=== PATIENT | male | born 1980 | race Caucasian/White ===

== ENCOUNTER 2018-12-27 21:47 | Emergency (ER) | payer OTHER ==
[~2018-12-27] VITALS: Ht 175.3 cm; Wt 195.0 kg
[2018-12-27 21:50] VITALS: BP_SYST 122; BP_SYST 209; BP_DIAS 1; BP_DIAS 93
[2018-12-27] MEDS ORDERED: ONDANSETRON 4 MG/2 ML VIAL IVP ONE (22:40)
[2018-12-27] MEDS ORDERED: NACL 0.9% 1,000 ML IV ONE (22:40)
[2018-12-27] MEDS ORDERED: MORPHINE SULFATE 4 MG/ML SYR IVP ONE ×2 (22:40→23:45)
[2018-12-27 22:59] LABS: BASOPHILS # (AUTO) 0.1 K/uL (0.00-0.22); EOSINOPHILS # (AUTO) 0.3 K/uL (0-0.4); EOSINOPHILS % (AUTO) 2.4 % (0.0-4.0); HEMOGLOBIN 13.2 g/dL (12.0-18.0); LYMPHOCYTES # (AUTO) 2.1 K/uL (2.0-11.5); LYMPHOCYTES % (AUTO) 19.7 % (20.5-51.1); MEAN CORPUSCULAR HEMOGLOBIN 25 pg (27-31); MEAN CORPUSCULAR HGB CONC 33 g/dL (33-37); MEAN CORPUSCULAR VOLUME 76.5 fL (80-94); MONOCYTES # (AUTO) 0.6 K/uL (0.8-1.0); MONOCYTES % (AUTO) 5.5 % (1.7-9.3); NEUTROPHILS # (AUTO) 7.8 K/uL (1.8-7.7); NEUTROPHILS % (AUTO) 71.4 % (42.2-75.2); PLATELET COUNT (AUTO) 271 K/uL (140-450); RED BLOOD CELL COUNT(AUTO) 5.24 MIL/uL (4.20-6.10); RED CELL DISTRIBUTION WIDTH 17.1 % (11.6-13.7); WHITE BLOOD COUNT (AUTO) 10.9 K/uL (4.8-10.8)
[2018-12-27 23:21] LABS: APPEARANCE,URINE CLOUDY (CLEAR); BILIRUBIN,URINE NEGATIVE (NEGATIVE); BLOOD, URINE 3+ (NEGATIVE); COLOR,URINE RED (YELLOW); LEUKOCYTE ESTERASE ,URINE 2+ (NEGATIVE); NITRITE, URINE POSITIVE (NEGATIVE); PH,URINE 6.5 (5.0-9.0); UGLUCOSE NEGATIVE (NEGATIVE)
[2018-12-27 23:23] LABS: ALBUMIN 3.4 g/dL (3.4-5.0); ANION GAP 14.2 (8-16); CARBON DIOXIDE 24.3 mmol/L (21-32); CREATININE 0.9 mg/dL (0.7-1.3); POTASSIUM 3.5 mmol/L (3.5-5.1); TOTAL BILIRUBIN 0.7 mg/dL (0.0-1.0)
[2018-12-27 23:29] LABS: RBC,URINE TOO NUMEROUS TO COUN /HPF (0-5)
[2018-12-27] MEDS ORDERED: CIPROFLOXACIN 250 MG TAB PO ONE (23:45)
[2018-12-28] MEDS ORDERED: KETOROLAC 30 MG/ML VIAL IM/IVP ONE (00:55)
[2018-12-28] MEDS ORDERED: MORPHINE SULFATE 4 MG/ML SYR IVP ONE ×2 (02:30→05:05)
[2018-12-28] MEDS ORDERED: ONDANSETRON 4 MG/2 ML VIAL IVP ONE (05:05)
[2018-12-28] MEDS ORDERED: oxyCODONE/APAP 5/325 MG 1 TAB TAB PO ONE (06:30)
[2018-12-28 06:31] VITALS: BP 121/74
== END 2018-12-28 06:31 | disposition home or self-care (01) ==
LOC: MED 21:47
DX: N39.0 Urinary tract infection, site not specified (principal); R31.9 Hematuria, unspecified; Z85.528 Personal history of other malignant neoplasm of kidney; Z88.0 Allergy status to penicillin; Z88.8 Allergy status to other drugs, medicaments and biological substances
CPT/HCPCS: 36415; 80053; 81001; 85025; 87086; 96374; 96375; 96376; 99283; J1885; J2270; J2405; J7030